=== PATIENT | female | born 1970 | race Two or more races ===

== ENCOUNTER 2021-02-20 12:55 | Day surgery (SDC) | payer MEDICAID ==
[2021-02-18 12:48] LABS: Basophils # (auto) 0 10 ^3/uL (0-0.2); Basophils % (auto) 0.6 % (0.0-2.0); Eosinophils # (auto) 0 10 ^3/uL (0-0.8); Eosinophils % (auto) 0.6 % (0.0-7.0); Hematocrit 37.4 % (36.0-46.0); Hemoglobin 12.4 g/dL (12.2-16.2); Lymphocytes # (auto) 1.7 10 ^3/uL (0.4-5.4); Lymphocytes % (auto) 41.6 % (10.0-50.0); Mean Corpuscular Hemoglobin 29.1 pg (28.0-32.0); Mean Corpuscular Hgb Conc. 33.1 g/dL (32.0-36.0); Monocytes # (auto) 0.4 10 ^3/uL (0-1.3); Monocytes % (auto) 10.1 % (0.0-12.0); Neutrophils # (auto) 1.9 10 ^3/uL (1.6-8.6); Neutrophils % (auto) 47.1 % (37.0-80.0); Red Blood Cells 4.25 10^6/uL (4.0-5.20); Red Cell Distribution Width 14.9 % (11.8-14.3)
[2021-02-18 12:50] LABS: Urine Bacteria FEW /hpf (None Seen); Urine Blood Negative /uL (Negative); Urine Mucus FEW (None Seen); Urine Specific Gravity 1.027 (1.001-1.035); Urine WBC 58 /hpf (0 - 5)
[2021-02-18 13:29] LABS: Albumin 3.5 g/dL (3.4-5.0); BUN/Creatinine Ratio 23.6; Bilirubin, Total 0.5 mg/dL (0.2-1.0); Calcium 8.8 mg/dL (8.5-10.1); Total Protein 7.4 g/dL (6.4-8.2)
[~2021-02-20] VITALS: Ht 160 cm; Wt 59.0 kg
[~2021-02-20 12:55] MED LIST: TAMO20TA9 PO
[2021-02-20] MEDS ORDERED: SODIUM CHLORIDE LOCK 10 ML ONE (13:49)
[2021-02-20] MEDS: fentaNYL CITRATE 100 MCG/2 ML VL ONE ×3 (14:00→14:08)
[2021-02-20] MEDS: MIDAZOLAM HCL 5 MG/ML-1ML VIAL ONE ×2 (14:00→14:04)
[2021-02-20] MEDS: diphenhdrAMINE HCL 50 MG/1 ML VL ONE ×2 (14:00→14:04)
[2021-02-20 15:10] VITALS: BP 109/61
== END 2021-02-20 15:30 | disposition home or self-care (01) ==
LOC: GI 12:55
PROVIDERS: ATTEND Internal Medicine Gastroenterology
DX: Z12.11 Encounter for screening for malignant neoplasm of colon (principal); D12.2 Benign neoplasm of ascending colon; K64.8 Other hemorrhoids; Z88.8 Allergy status to other drugs, medicaments and biological substances; Z90.10 Acquired absence of unspecified breast and nipple; Z20.822 Contact with and (suspected) exposure to COVID-19; Z98.890 Other specified postprocedural states; Z79.899 Other long term (current) drug therapy
CPT/HCPCS: 36415; 45380; 80053; 81001; 85025; 88305; J1200; J2250; J3010; J7030; U0003; 99152

== ENCOUNTER 2022-11-25 17:55 | Inpatient (IN) | payer MEDICAID ==
[~2022-11-25] VITALS: Ht 160 cm; Wt 58.2 kg
[2022-11-25 21:32] LABS: Basophils # (auto) 0 10 ^3/uL (0-0.2); Basophils % (auto) 0.2 % (0.0-2.0); Eosinophils # (auto) 0 10 ^3/uL (0-0.8); Eosinophils % (auto) 0.4 % (0.0-7.0); Hematocrit 35.5 % (36.0-46.0); Hemoglobin 11.9 g/dL (12.2-16.2); Lymphocytes # (auto) 1.2 10 ^3/uL (0.4-5.4); Lymphocytes % (auto) 14.8 % (10.0-50.0); Mean Corpuscular Hemoglobin 29.4 pg (28.0-32.0); Mean Corpuscular Hgb Conc. 33.5 g/dL (32.0-36.0); Mean Corpuscular Volume 87.8 fL (80.0-100.0); Monocytes # (auto) 0.6 10 ^3/uL (0-1.3); Monocytes % (auto) 7.8 % (0.0-12.0); Neutrophils # (auto) 6.2 10 ^3/uL (1.6-8.6); Neutrophils % (auto) 76.8 % (37.0-80.0); Nucleated Red Blood Cells % 0.2 %; Red Blood Cells 4.04 10^6/uL (4.0-5.20); Red Cell Distribution Width 17.6 % (11.8-14.3)
[2022-11-25] MEDS ORDERED: HYDROmorphone HCL 2 MG/ML VL/or syr IV ONE (22:00)
[2022-11-25] MEDS ORDERED: SODIUM CHLORIDE 0.9% 1,000 ML IV ONE (22:00)
[2022-11-25] MEDS ORDERED: ONDANSETRON HCL 4 MG/2 ML VIAL IV ONE (22:00)
[2022-11-25 22:05] LABS: Albumin 3.9 g/dL (3.4-5.0); BUN/Creatinine Ratio 20.8 (10.0-20.0); Calcium 9.2 mg/dL (8.5-10.1); Potassium 3.7 mmol/L (3.5-5.1)
[2022-11-25 22:07] LABS: Bilirubin, Total 0.6 mg/dL (0.2-1.0)
[2022-11-25] MEDS ORDERED: cefTRIAXone 1GM/50ML D5W 50 ML IV ONE (23:45)
[2022-11-25] MEDS ORDERED: AZITHROMYCIN 500MG/ 250ML 250 ML IV ONE (23:45)
[2022-11-26 01:26] LABS: Urine Bacteria NONE SEEN /hpf (None Seen); Urine Blood Negative /uL (Negative); Urine Mucus FEW (None Seen); Urine Specific Gravity 1.009 (1.001-1.035); Urine WBC 4 /hpf (0 - 5)
[2022-11-26] MEDS ORDERED: ACETAMINOPHEN 325 MG TAB PO PRN (05:30)
[2022-11-26] MEDS: CLINDAMYCIN 300MG IV 50 ML IV ONE ×2 (05:46→06:11)
[2022-11-26] MEDS: ONDANSETRON HCL 4 MG/2 ML VIAL IV PRN ×2 (05:57→21:36)
[2022-11-26] MEDS: MORPHINE SULFATE INJ 2 MG/ml SYRG IV PRN ×2 (05:58→07:14)
[2022-11-26] MEDS: CLINDAMYCIN 600MG IV 50 ML IV SCH ×3 (08:58→22:10)
[2022-11-26] MEDS: cefTRIAXone 1GM/50ML D5W 50 ML IV SCH ×2 (09:41→20:54)
[2022-11-26] MEDS: PANTOPRAZOLE 40 MG TAB PO SCH (10:30)
[2022-11-26] MEDS ORDERED: KETOROLAC TROMETH 30 MG/ML 1ML VIAL IV ONE (15:30)
[2022-11-26] MEDS ORDERED: CYCL-611 PO (18:37)
[2022-11-26] MEDS ORDERED: CAPE1TAB11 PO (18:37)
[2022-11-26] MEDS ORDERED: TRAM50TA2 PO (18:37)
[2022-11-26] MEDS ORDERED: ERGO1CAP12 PO (18:37)
[2022-11-26] MEDS: HYDROcodone-ACET 5/325MG TAB PO PRN (21:36)
[2022-11-27 04:52] VITALS: BP 98/60
[2022-11-27] MEDS: CLINDAMYCIN 600MG IV 50 ML IV SCH ×3 (06:01→22:25)
[2022-11-27 06:13] LABS: Basophils # (auto) 0 10 ^3/uL (0-0.2); Basophils % (auto) 0.1 % (0.0-2.0); Eosinophils # (auto) 0 10 ^3/uL (0-0.8); Eosinophils % (auto) 0.7 % (0.0-7.0); Hematocrit 31.1 % (36.0-46.0); Hemoglobin 10.4 g/dL (12.2-16.2); Lymphocytes # (auto) 1.1 10 ^3/uL (0.4-5.4); Lymphocytes % (auto) 19.5 % (10.0-50.0); Mean Corpuscular Hemoglobin 29.3 pg (28.0-32.0); Mean Corpuscular Hgb Conc. 33.3 g/dL (32.0-36.0); Monocytes # (auto) 0.6 10 ^3/uL (0-1.3); Monocytes % (auto) 11.1 % (0.0-12.0); Neutrophils # (auto) 3.8 10 ^3/uL (1.6-8.6); Neutrophils % (auto) 68.6 % (37.0-80.0); Red Blood Cells 3.54 10^6/uL (4.0-5.20); Red Cell Distribution Width 17.2 % (11.8-14.3); White Blood Cell 5.6 10^3/uL (4.4-10.8)
[2022-11-27 06:22] LABS: Calcium 8.4 mg/dL (8.5-10.1); Potassium 3.4 mmol/L (3.5-5.1)
[2022-11-27 06:27] LABS: BUN/Creatinine Ratio 14.3 (10.0-20.0)
[2022-11-27 09:00] VITALS: BP 97/63
[2022-11-27] MEDS: HYDROcodone-ACET 5/325MG TAB PO PRN ×2 (09:13→14:50)
[2022-11-27] MEDS: PANTOPRAZOLE 40 MG TAB PO SCH (09:13)
[2022-11-27] MEDS ORDERED: POTASSIUM CHL 20 Meq TABLET PO ONE (09:15)
[2022-11-27] MEDS: D5W/ SOD CHL 0.9%/KCL 20MEQ 1,000 ML IV SCH (12:30)
[2022-11-27 12:53] VITALS: BP 106/60
[2022-11-27 17:02] VITALS: BP 92/52
[2022-11-27] MEDS: MORPHINE SULFATE INJ 2 MG/ml SYRG IV PRN ×2 (18:05→22:39)
[2022-11-27] MEDS: cefTRIAXone 1GM/50ML D5W 50 ML IV SCH (20:46)
[2022-11-27 22:00] VITALS: BP 95/56
[2022-11-27 22:31] VITALS: BP 99/57
[2022-11-28] MEDS: TEMAZEPAM 15 MG CAP PO PRN ×2 (00:08→22:34)
[2022-11-28] MEDS: D5W/ SOD CHL 0.9%/KCL 20MEQ 1,000 ML IV SCH ×2 (00:16→14:50)
[2022-11-28] MEDS: CLINDAMYCIN 600MG IV 50 ML IV SCH ×3 (05:41→21:51)
[2022-11-28] MEDS: MORPHINE SULFATE INJ 2 MG/ml SYRG IV PRN (05:52)
[2022-11-28 06:25] LABS: Basophils # (auto) 0 10 ^3/uL (0-0.2); Basophils % (auto) 0.3 % (0.0-2.0); Eosinophils # (auto) 0.1 10 ^3/uL (0-0.8); Eosinophils % (auto) 1.4 % (0.0-7.0); Hemoglobin 10.9 g/dL (12.2-16.2); Lymphocytes # (auto) 1.2 10 ^3/uL (0.4-5.4); Lymphocytes % (auto) 25.9 % (10.0-50.0); Mean Corpuscular Hemoglobin 28.3 pg (28.0-32.0); Mean Corpuscular Hgb Conc. 32.2 g/dL (32.0-36.0); Mean Corpuscular Volume 87.8 fL (80.0-100.0); Monocytes # (auto) 0.5 10 ^3/uL (0-1.3); Monocytes % (auto) 11.3 % (0.0-12.0); Neutrophils # (auto) 2.8 10 ^3/uL (1.6-8.6); Neutrophils % (auto) 61.1 % (37.0-80.0); Nucleated Red Blood Cells % 0.3 %; Red Blood Cells 3.87 10^6/uL (4.0-5.20); Red Cell Distribution Width 17.3 % (11.8-14.3); White Blood Cell 4.5 10^3/uL (4.4-10.8)
[2022-11-28 06:37] LABS: BUN/Creatinine Ratio 8.7 (10.0-20.0); Calcium 8.7 mg/dL (8.5-10.1); Potassium 4.2 mmol/L (3.5-5.1)
[2022-11-28 09:00] VITALS: BP 94/53
[2022-11-28] MEDS: PANTOPRAZOLE 40 MG TAB PO SCH (09:36)
[2022-11-28] MEDS: HYDROcodone-ACET 5/325MG TAB PO PRN ×3 (09:38→21:52)
[2022-11-28 13:00] VITALS: BP 92/53
[2022-11-28 16:50] VITALS: BP 100/56
[2022-11-28] MEDS: cefTRIAXone 1GM/50ML D5W 50 ML IV SCH (20:31)
[2022-11-28 22:00] VITALS: BP 105/62
[2022-11-29] MEDS: D5W/ SOD CHL 0.9%/KCL 20MEQ 1,000 ML IV SCH ×2 (02:50→17:28)
[2022-11-29] MEDS: HYDROcodone-ACET 5/325MG TAB PO PRN ×5 (04:00→22:18)
[2022-11-29] MEDS: CLINDAMYCIN 600MG IV 50 ML IV SCH ×3 (05:42→22:18)
[2022-11-29] MEDS: PANTOPRAZOLE 40 MG TAB PO SCH (08:46)
[2022-11-29 09:00] VITALS: BP 102/63
[2022-11-29 13:00] VITALS: BP 103/60
[2022-11-29 17:00] VITALS: BP 116/61
[2022-11-29] MEDS: cefTRIAXone 1GM/50ML D5W 50 ML IV SCH (20:43)
[2022-11-29 22:00] VITALS: BP 109/60
[2022-11-29] MEDS: TEMAZEPAM 15 MG CAP PO PRN (22:18)
[2022-11-30] MEDS: HYDROcodone-ACET 5/325MG TAB PO PRN ×6 (02:51→23:30)
[2022-11-30 05:00] VITALS: BP 98/59
[2022-11-30] MEDS: CLINDAMYCIN 600MG IV 50 ML IV SCH ×3 (05:49→22:37)
[2022-11-30] MEDS: D5W/ SOD CHL 0.9%/KCL 20MEQ 1,000 ML IV SCH ×2 (05:49→18:01)
[2022-11-30] MEDS: PANTOPRAZOLE 40 MG TAB PO SCH (08:46)
[2022-11-30 09:00] VITALS: BP 105/59
[2022-11-30 13:00] VITALS: BP 111/46
[2022-11-30 17:00] VITALS: BP 139/58
[2022-11-30] MEDS: cefTRIAXone 1GM/50ML D5W 50 ML IV SCH (21:22)
[2022-11-30 22:00] VITALS: BP 111/68
[2022-11-30] MEDS: TEMAZEPAM 15 MG CAP PO PRN (23:30)
[2022-12-01 05:00] VITALS: BP 105/58
[2022-12-01] MEDS: CLINDAMYCIN 600MG IV 50 ML IV SCH (05:41)
[2022-12-01] MEDS: HYDROcodone-ACET 5/325MG TAB PO PRN ×2 (08:33→12:39)
[2022-12-01] MEDS: PANTOPRAZOLE 40 MG TAB PO SCH (08:33)
[2022-12-01 09:00] VITALS: BP 101/59
[2022-12-01] MEDS ORDERED: AUG875T PO (10:25)
[2022-12-01] MEDS ORDERED: PANT40TA2 PO (12:30)
[2022-12-01] MEDS ORDERED: ONDA-144 PO (12:30)
[2022-12-01] MEDS ORDERED: HYDR-4902 PO (12:30)
== END 2022-12-01 12:42 | disposition home or self-care (01) | DRG 383 ==
LOC: ER 17:55 → OVERFLOW 11-26 05:26 → EAST 11-26 17:30
PROVIDERS: ADMIT Nurse Practitioner; ATTEND Internal Medicine Geriatric Medicine
DX: L03.211 Cellulitis of face (principal); C79.51 Secondary malignant neoplasm of bone; C50.919 Malignant neoplasm of unspecified site of unspecified female breast; M48.54XA Collapsed vertebra, not elsewhere classified, thoracic region, initial encounter for fracture; E86.0 Dehydration; D64.9 Anemia, unspecified; E87.6 Hypokalemia; N39.0 Urinary tract infection, site not specified; Z80.49 Family history of malignant neoplasm of other genital organs; Z85.3 Personal history of malignant neoplasm of breast; Z90.12 Acquired absence of left breast and nipple
CPT/HCPCS: 36415; 70450; 70486; 71250; 74176; 80048; 80053; 81001; 82962; 84484; 85025; 96361; 96365; 96368; 96375; G0378; J0696; J1885; J2405; J3490